=== PATIENT | female | born 1965 | race Caucasian/White ===

== ENCOUNTER 2018-12-26 11:34 | Day surgery (SDC) | payer MEDICARE, BC ==
[2018-12-26] MEDS ORDERED: PROPOFOL 10 MG/ML VIAL IV ONE (11:35)
[2018-12-26] MEDS ORDERED: LIDOCAINE 2% MDV (20MG/ML) 20ML VIAL IV ONE (11:35)
[2018-12-26 12:03] LABS: INR 1.2; PROTHROMBIN TIME (PATIENT) 12.5 SECONDS (9.5-12.1)
--- NOTE | 2018-12-27 06:02 | Operative Note ---
OPERATION: COLONOSCOPY to the cecum with cold snare polypectomy x1. INDICATION: Surveillance colonoscopy. The patient had last examination in [address] Sweeney, who at that time removed a polyp which was adenoma in type. She returns at this time after 5 years for surveillance. Her preparation in the past was poor. The patient also had a history of a sigmoid resection for presumed diverticulitis. ANESTHESIA: Intravenous sedation was administered by the department of anesthesiology and included Diprivan titrated to effect. PROCEDURE: Following informed consent from this alert individual including a discussion of the risks and benefits of the procedure and an opportunity for the patient to ask questions, the patient was in the left lateral decubitus position. A digital rectal examination was performed. No abnormalities were noted. Following this, the Olympus [id number] video colonoscope was inserted into the rectum without resistance. The rectal mucosa as visualized was unremarkable; however, there was a fair amount of retained solid and liquid stool noted. Suctioning and washing were employed vigorously. The colonoscope was advanced to the sigmoid colon where diverticulosis was noted. There was a previous surgical site appreciated which was healthy in appearance and widely patent. Near the anastomotic site was a sessile 6-7 mm polyp which was removed with cold snare polypectomy and suctioned through the colonoscope into a collection trap. The colonoscope was then advanced farther up to the level of what was presumed to be the cecum. Unfortunately, there as a fair amount of retained liquid and solid stool noted through large portions of the colon precluding complete visualization. The cecum particularly was unable to be well seen at the base. From this point, the colonoscope was withdrawn. No large polyps were seen upon withdrawal. Again diverticulosis was noted. Small or medium size polyps could have easily been missed due to the retained solid stool and semi-solid stool. Retroflexion in the rectum was endoscopically unremarkable as visualized. The endoscope was straightened and withdrawn. The patient tolerated the procedure well and was returned to the recovery area in stable condition. IMPRESSION: 1. Poor colon preparation with retained solid and semi-solid and liquid stool. Suctioning and washing were employed vigorously but as visualized, the mucosa could not be completely evaluated. 2. Previous sigmoid resection with healthy appearing anastomosis. 3. Diverticulosis. 4. Sigmoid 6-7 mm polyp removed with cold snare polypectomy. RECOMMENDATIONS: Further recommendations will be forthcoming pending results of pathology obtained today. I did recommend the patient have a repeat colonoscopy in the next 2-3 months with additional colon prep. I will also start her on MiraLax daily for chronic constipation. Followup will also be with Dr. Hayes Malagon. As always, thank you for allowing me to participate in the care of your patient. JOSH
== END 2018-12-26 13:45 | disposition home or self-care (01) ==
LOC: HOP 11:34
PROVIDERS: ATTEND Internal Medicine Gastroenterology
DX: Z12.11 Encounter for screening for malignant neoplasm of colon (principal); Z86.010 Personal history of colon polyps; D12.5 Benign neoplasm of sigmoid colon; K57.30 Diverticulosis of large intestine without perforation or abscess without bleeding; Z90.49 Acquired absence of other specified parts of digestive tract; Z91.19 Patient's noncompliance with other medical treatment and regimen; E78.00 Pure hypercholesterolemia, unspecified; K21.9 Gastro-esophageal reflux disease without esophagitis; Z79.01 Long term (current) use of anticoagulants; J45.909 Unspecified asthma, uncomplicated
CPT/HCPCS: 85610